=== PATIENT | female | born 1960 | race African-American/Black ===

== ENCOUNTER 2023-06-21 10:44 | Inpatient (IN) | payer MEDICAID, OTHER ==
[~2023-06-21] VITALS: Ht 172.7 cm; Wt 104.0 kg
[2023-06-21] MEDS ORDERED: LORazepam 2MG/ML-1ML VIAL IV ONE ×2 (11:00→15:30)
[2023-06-21] MEDS ORDERED: PROMETHAZINE HCL 25 MG/ML 1ML IV ONE (12:45)
[2023-06-21] MEDS ORDERED: LABETALOL HCL 5 MG/ML 4ML SYRINGE IV ONE (12:45)
[2023-06-21 13:11] VITALS: PULSE 86; RESP 18; O2SAT 100
[2023-06-21] MEDS ORDERED: ONDANSETRON HCL 4 MG/2 ML VIAL IV ONE (13:30)
[2023-06-21] MEDS ORDERED: SODIUM CHLORIDE 0.9% 1,000 ML IV ONE (15:30)
[2023-06-21] MEDS ORDERED: diphenhdrAMINE HCL 50 MG/1 ML VL IV ONE (16:00)
[2023-06-21 16:23] LABS: Basophils # (auto) 0 10 ^3/uL (0-0.2); Basophils % (auto) 0.3 % (0.0-2.0); Eosinophils # (auto) 0 10 ^3/uL (0-0.8); Hematocrit 39.6 % (36.0-46.0); Lymphocytes # (auto) 1.4 10 ^3/uL (0.4-5.4); Lymphocytes % (auto) 15.7 % (10.0-50.0); Mean Corpuscular Hemoglobin 29.8 pg (28.0-32.0); Mean Corpuscular Hgb Conc. 32.9 g/dL (32.0-36.0); Mean Corpuscular Volume 90.4 fL (80.0-100.0); Monocytes # (auto) 0.3 10 ^3/uL (0-1.3); Monocytes % (auto) 3.2 % (0.0-12.0); Neutrophils # (auto) 7.2 10 ^3/uL (1.6-8.6); Neutrophils % (auto) 80.8 % (37.0-80.0); Nucleated Red Blood Cells % 0.1 %; Red Blood Cells 4.38 10^6/uL (4.0-5.20); Red Cell Distribution Width 13.9 % (11.8-14.3); White Blood Cell 8.9 10^3/uL (4.4-10.8)
[2023-06-21] MEDS ORDERED: ONDANSETRON HCL 4 MG/2 ML VIAL IV PRN (16:30)
[2023-06-21] MEDS: SODIUM CHLORIDE 0.9% 1,000 ML IV SCH (16:30)
[2023-06-21] MEDS ORDERED: DOCUSATE SOD 100 MG CAP PO PRN (16:30)
[2023-06-21 16:32] LABS: Chloride 109 mmol/L (98-107); Potassium 3.8 mmol/L (3.5-5.1); Sodium 145 mmol/L (136-145)
[2023-06-21 16:33] LABS: Anion Gap 10 (5-15); Carbon Dioxide 26 mmol/L (20-30)
[2023-06-21 16:34] LABS: Calcium 9.8 mg/dL (8.5-10.1)
[2023-06-21 16:39] LABS: BUN/Creatinine Ratio 17.8 (10.0-20.0); Blood Urea Nitrogen 16 mg/dL (9-23); Glucose 168 mg/dL (74-106)
[2023-06-21] MEDS ORDERED: OMEP1CAP70 PO (16:50)
[2023-06-21] MEDS ORDERED: ROSU1TAB14 PO (16:50)
[2023-06-21] MEDS ORDERED: LURA20TA2 PO (16:50)
[2023-06-21] MEDS: hydrALAZINE HCL 20 MG/ML VL IV PRN (17:29)
[2023-06-21] MEDS ORDERED: PANTOPRAZOLE 40 MG/10 ML VIAL INJ IV ONE (18:15)
[2023-06-21] MEDS ORDERED: METOCLOPRAMIDE HCL 5MG/ml INJ 2ml VIAL IV ONE (18:15)
[2023-06-21 19:32] VITALS: PULSE 110; RESP 24; O2SAT 99
[2023-06-21] MEDS: LORazepam 2MG/ML-1ML VIAL IV ONE (20:04)
[2023-06-21] MEDS: PANTOPRAZOLE 40mg/50ML NS AE 50 ML IV SCH (20:17)
[2023-06-21 21:39] LABS: Urine Bacteria NONE SEEN /hpf (None Seen); Urine Blood Negative /uL (Negative); Urine Clarity HAZY (Clear); Urine Color Yellow (Yellow); Urine Protein, UAD 1+ (Negative); Urine Specific Gravity 1.023 (1.001-1.035); Urine Urobilinogen Normal (Negative); Urine WBC 1 /hpf (0 - 5); Urine pH 7.5 (5.0-8.0)
[2023-06-21 21:43] LABS: Amphetamine Screen, Urine Neg (NEGATIVE); Barbiturate Scree,Urine Neg (NEGATIVE); Benzodiazephine Screen, Urine Pos (NEGATIVE); Cannabinoid Screen, Urine Neg (NEGATIVE); Cocaine Screen, Urine Neg (NEGATIVE); Opiate Scree,Urine Neg (NEGATIVE); Phencyclidine Screen, Urine Neg (NEGATIVE)
[2023-06-21] MEDS: ATORVASTATIN 20 MG TAB PO SCH (22:25)
[2023-06-22] MEDS: PANTOPRAZOLE 40mg/50ML NS AE 50 ML IV SCH ×2 (00:07→05:30)
[2023-06-22] MEDS: hydrALAZINE HCL 20 MG/ML VL IV PRN (00:07)
[2023-06-22] MEDS: SODIUM CHLORIDE 0.9% 1,000 ML IV SCH (00:30)
[2023-06-22] MEDS: LORazepam 2MG/ML-1ML VIAL IV ONE (00:48)
[2023-06-22] MEDS ORDERED: PANTOPRAZOLE 40 MG TAB PO SCH (07:00)
[2023-06-22 07:08] LABS: Alanine Aminotransferase 19 U/L (7-40); Albumin 4.1 g/dL (3.2-4.8); Alkaline Phosphatase 89 U/L (46-116); Anion Gap 10 (5-15); Aspartate Aminotransferase 19 U/L (13-40); BUN/Creatinine Ratio 13.4 (10.0-20.0); Bilirubin, Total 0.3 mg/dL (0.2-1.0); Blood Urea Nitrogen 13 mg/dL (9-23); Calcium 9.3 mg/dL (8.5-10.1); Carbon Dioxide 25 mmol/L (20-30); Chloride 112 mmol/L (98-107); Glucose 103 mg/dL (74-106); Potassium 3.6 mmol/L (3.5-5.1); Sodium 147 mmol/L (136-145); Total Protein 6.6 g/dL (5.7-8.2)
[2023-06-22 07:32] VITALS: PULSE 95; RESP 17; O2SAT 99
[2023-06-22 09:34] LABS: Protein, Urine 43.9 mg/dL (0.0-11.9)
[2023-06-22 09:37] LABS: Creatinine, Urine 191.86 mg/dL (30.0-125.0); Urine Protein/Creatinine Ratio 0.23
[2023-06-22] MEDS: LURASIDONE HYDROCHLORIDE PO SCH (09:41)
[2023-06-22] MEDS: PANTOPRAZOLE 40 MG/10 ML VIAL INJ IV SCH ×2 (09:41→21:41)
[2023-06-22 09:46] LABS: Basophils # (auto) 0 10 ^3/uL (0-0.2); Basophils % (auto) 0.4 % (0.0-2.0); Eosinophils # (auto) 0 10 ^3/uL (0-0.8); Hematocrit 35.3 % (36.0-46.0); Hemoglobin 11.2 g/dL (12.2-16.2); Lymphocytes # (auto) 3.6 10 ^3/uL (0.4-5.4); Lymphocytes % (auto) 32.3 % (10.0-50.0); Mean Corpuscular Hemoglobin 29.3 pg (28.0-32.0); Mean Corpuscular Hgb Conc. 31.7 g/dL (32.0-36.0); Mean Corpuscular Volume 92.4 fL (80.0-100.0); Monocytes # (auto) 1.1 10 ^3/uL (0-1.3); Monocytes % (auto) 9.6 % (0.0-12.0); Neutrophils # (auto) 6.5 10 ^3/uL (1.6-8.6); Neutrophils % (auto) 57.7 % (37.0-80.0); Red Blood Cells 3.82 10^6/uL (4.0-5.20); Red Cell Distribution Width 14.2 % (11.8-14.3); White Blood Cell 11.2 10^3/uL (4.4-10.8)
[2023-06-22] MEDS: LORazepam 2MG/ML-1ML VIAL IV PRN ×2 (10:25→17:02)
[2023-06-22] MEDS: ACETAMINOPHEN 325 MG TAB PO PRN (10:42)
[2023-06-22] MEDS ORDERED: HALOPERIDOL LACTATE 5 MG/ML INJ VIAL IM PRN (11:15)
[2023-06-22] MEDS: SUCRALFATE 1 GM TAB PO SCH ×3 (14:37→21:41)
[2023-06-22] MEDS ORDERED: ERGOCALCIFEROL 50,000 UNIT(1.25MG) CAP PO SCH (15:30)
[2023-06-22] MEDS: AZITHROMYCIN 250 MG TAB PO SCH (15:39)
[2023-06-22] MEDS: cefTRIAXone 1GM/50ML D5W 50 ML IV SCH (15:39)
[2023-06-22] MEDS: NICOTINE 7MG/24HR TOPICAL PATCH TD SCH (17:06)
[2023-06-22 17:32] LABS: Triglycerides 69 mg/dL (< 150)
[2023-06-22 17:33] LABS: LDL Cholesterol 57 mg/dL (< 100)
[2023-06-22 17:34] LABS: Cholesterol 101 mg/dL (< 200); HDL Cholesterol 27 mg/dL (40-59)
[2023-06-22 19:04] LABS: INR 1.04 (0.9-1.15); Prothrombin Time 10.9 sec (9.3-11.8)
[2023-06-22 20:10] VITALS: PULSE 91; RESP 22; O2SAT 99
[2023-06-22] MEDS: ATORVASTATIN 20 MG TAB PO SCH (21:41)
[2023-06-22 23:19] VITALS: BP 113/55; PULSE 79; RESP 20; TEMP 98.4; O2SAT 99
[2023-06-23] MEDS: SUCRALFATE 1 GM TAB PO SCH ×4 (05:58→22:15)
[2023-06-23] MEDS: cefTRIAXone 1GM/50ML D5W 50 ML IV SCH (08:24)
[2023-06-23 08:25] VITALS: BP 116/67; PULSE 84; RESP 17; TEMP 98.7; O2SAT 99
[2023-06-23] MEDS: LURASIDONE HYDROCHLORIDE PO SCH (10:00)
[2023-06-23] MEDS ORDERED: FLUoxetine HCL 20 MG CAP PO SCH (10:00)
[2023-06-23 10:05] VITALS: BP 116/67; PULSE 84; RESP 17; TEMP 98.7; O2SAT 99
[2023-06-23] MEDS: PANTOPRAZOLE 40 MG/10 ML VIAL INJ IV SCH ×2 (10:05→21:39)
[2023-06-23] MEDS: NICOTINE 7MG/24HR TOPICAL PATCH TD SCH (10:07)
[2023-06-23] MEDS: AZITHROMYCIN 250 MG TAB PO SCH (10:07)
[2023-06-23] MEDS: LORazepam 2MG/ML-1ML VIAL IV PRN (10:21)
[2023-06-23 10:24] LABS: Basophils # (auto) 0.1 10 ^3/uL (0-0.2); Basophils % (auto) 1.4 % (0.0-2.0); Eosinophils # (auto) 0.1 10 ^3/uL (0-0.8); Eosinophils % (auto) 1.1 % (0.0-7.0); Hemoglobin 11.4 g/dL (12.2-16.2); Lymphocytes # (auto) 3.9 10 ^3/uL (0.4-5.4); Lymphocytes % (auto) 44.6 % (10.0-50.0); Mean Corpuscular Hemoglobin 30.3 pg (28.0-32.0); Mean Corpuscular Hgb Conc. 32.7 g/dL (32.0-36.0); Mean Corpuscular Volume 92.8 fL (80.0-100.0); Monocytes # (auto) 0.6 10 ^3/uL (0-1.3); Monocytes % (auto) 7.2 % (0.0-12.0); Neutrophils % (auto) 45.7 % (37.0-80.0); Nucleated Red Blood Cells % 0.1 %; Red Blood Cells 3.78 10^6/uL (4.0-5.20); Red Cell Distribution Width 13.9 % (11.8-14.3); White Blood Cell 8.8 10^3/uL (4.4-10.8)
[2023-06-23 10:40] LABS: Alanine Aminotransferase 19 U/L (7-40); Albumin 3.8 g/dL (3.2-4.8); Alkaline Phosphatase 88 U/L (46-116); Anion Gap 7 (5-15); Aspartate Aminotransferase 21 U/L (13-40); BUN/Creatinine Ratio 7.7 (10.0-20.0); Bilirubin, Total 0.3 mg/dL (0.2-1.0); Blood Urea Nitrogen 7 mg/dL (9-23); Calcium 9.2 mg/dL (8.5-10.1); Carbon Dioxide 25 mmol/L (20-30); Chloride 107 mmol/L (98-107); Glucose 134 mg/dL (74-106); Potassium 3.7 mmol/L (3.5-5.1); Sodium 139 mmol/L (136-145); Total Protein 6.3 g/dL (5.7-8.2)
[2023-06-23 13:27] VITALS: BP 127/74; PULSE 76; RESP 16; TEMP 98.9; O2SAT 99
[2023-06-23] MEDS ORDERED: AZIT-43 PO (13:39)
[2023-06-23] MEDS ORDERED: ERGO1CAP23 PO (13:39)
[2023-06-23] MEDS ORDERED: FLUO20CA90 PO (13:39)
[2023-06-23] MEDS ORDERED: PANT40TA2 PO (13:39)
[2023-06-23] MEDS ORDERED: HAL5I IM (13:39)
[2023-06-23] MEDS ORDERED: SUCR1TAB PO (13:39)
[2023-06-23] MEDS ORDERED: CAR3125T OR (13:43)
[2023-06-23] MEDS ORDERED: LISI-275 PO (13:43)
[2023-06-23] MEDS ORDERED: ASPI-325 PO (13:43)
[2023-06-23 17:02] VITALS: BP 137/69; PULSE 91; RESP 19; TEMP 98.2; O2SAT 96
[2023-06-23 20:00] VITALS: RESP 16; O2SAT 96
[2023-06-23] MEDS: ACETAMINOPHEN 325 MG TAB PO PRN (21:38)
[2023-06-23 21:39] VITALS: BP 123/76; PULSE 88; RESP 18; TEMP 98.6; O2SAT 96
[2023-06-23] MEDS: ATORVASTATIN 20 MG TAB PO SCH (21:39)
== END 2023-06-24 02:26 | disposition short-term general hospital (02) | DRG 253 ==
LOC: ER 10:44 → EDBD 10:44 → OVERFLOW 16:25 → WEST WING 06-22 23:21
PROVIDERS: ADMIT Internal Medicine; ATTEND Emergency Medicine
DX: K92.2 Gastrointestinal hemorrhage, unspecified (principal); G92.8 Other toxic encephalopathy; J15.69 Pneumonia due to other Gram-negative bacteria; I21.A1 Myocardial infarction type 2; E87.0 Hyperosmolality and hypernatremia; S09.90XA Unspecified injury of head, initial encounter; I16.0 Hypertensive urgency; I10 Essential (primary) hypertension; F31.9 Bipolar disorder, unspecified; E78.5 Hyperlipidemia, unspecified; E55.9 Vitamin D deficiency, unspecified; R73.03 Prediabetes; F17.200 Nicotine dependence, unspecified, uncomplicated; E66.01 Morbid (severe) obesity due to excess calories; F41.9 Anxiety disorder, unspecified; X58.XXXA Exposure to other specified factors, initial encounter; Y93.89 Activity, other specified; Y92.89 Other specified places as the place of occurrence of the external cause; Y99.8 Other external cause status; Z71.6 Tobacco abuse counseling; Z68.34 Body mass index [BMI] 34.0-34.9, adult
CPT/HCPCS: 36415; 70450; 71045; 71250; 74176; 80048; 80053; 80061; 80307; 81001; 82306; 82570; 82607; 83036; 83880; 83930; 83935; 84156; 84300; 84443; 84484; 85025; 85610; 87081; 93005; 93306; C9113; G0378; J2405; J3490